=== PATIENT | female | born 2000 | race Caucasian/White ===

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

== ENCOUNTER → 2019-01-14 11:51 | Observation (INO) ==
--- NOTE | 2019-01-20 16:43 | OB/GYN Progress Note ---
Date of Encounter: 01/14/19 Time of Encounter: 12:00 - Assessment and Plan (1) Decreased movement affecting management of in second trimester Status: Acute feeling movement in triage, tracing appropriate discharged home Qualifiers: Fetus number: single or unspecified fetus Qualified Code(s): O36.8120 - Decreased movements, second trimester, not applicable or unspecified Subjective - Subjective Interval history: Here for decreased movement Antepartum ROS: no loss of fluid, no vaginal bleeding, no movement normal, no contractions Objective - Exam FHR: auscultation normal FHR comments: appropriate for gestational age
== END | disposition home or self-care (01) ==
LOC: 1NENULAB
PROVIDERS: ADMIT Advanced Practice Midwife; ATTEND Advanced Practice Midwife

== ENCOUNTER 2019-04-11 06:00 | Inpatient (IN) ==
[2019-04-11] MEDS ORDERED: Ringers Solution, Lactated 1,000 ML ONE (06:32)
[2019-04-11] MEDS ORDERED: Naloxone 0.4 MG/ML INJ IVP PRN (06:41)
[2019-04-11] MEDS ORDERED: *HR* Nalbuphine 10 MG/ML AMPUL IVP PRN (06:41)
[2019-04-11] MEDS ORDERED: Famotidine 20 MG/2 ML VIAL IVP PRN (06:41)
[2019-04-11] MEDS ORDERED: Metoclopramide 10 MG/2 ML VIAL IVP PRN (06:41)
[2019-04-11] MEDS ORDERED: Ringers Solution, Lactated 1,000 ML IVC SCH (06:45)
[2019-04-11] MEDS ORDERED: Oxytocin 20 units/ LR 1000 mL 20 UNIT/1,000 ML BAG IVC SCH (07:00)
[2019-04-11 07:25] LABS: Basophils % 0.1 %; Eosinophils # 0.2 K/mcL (0.0-0.6); Eosinophils % 1.7 %; Hematocrit 35.2 % (35.3-44.9); Hemoglobin 12.3 g/dL (11.5-15.4); Immature Granulocytes % 0.3 % (0-4); Lymphocytes # 1.6 K/mcL (0.6-4.6); Lymphocytes % 18.1 %; Mean Corpuscular HGB Conc 34.9 g/dL (31.6-35.5); Mean Corpuscular Hemoglobin 30.8 pg (28.0-33.3); Mean Corpuscular Volume 88.2 fL (83.0-100.0); Mean Platelet Volume 11.9 fL (9.4-12.4); Monocytes # 0.5 K/mcL (0.0-1.3); Monocytes % 5.3 %; Neutrophils # 6.4 K/mcL (1.6-8.9); Platelet Count 196 K/mcL (140-400); Red Blood Count 3.99 M/mcL (3.82-4.97); Red Cell Distribution Width 12.4 % (11.5-14.5); Segmented Neutrophils % 74.5 %; White Blood Count 8.6 K/mcL (4.3-11.1)
[2019-04-11 07:30] LABS: Amphetamine Screen,Urine Negative ng/mL (Cutoff=1000); Barbiturate Screen,Urine Negative ng/mL (Cutoff=200)
[2019-04-11 07:31] LABS: Benzodiazepines Screen,Urine Negative ng/mL (Cutoff=300); Cannabinoid Screen,Urine Negative ng/mL (Cutoff = 50); Cocaine Screen,Urine Negative ng/mL (Cutoff= 300); Opiate Screen,Urine Negative ng/mL (Cutoff=300); Phencyclidine Screen,Urine Negative ng/mL (Cutoff=25)
[2019-04-12] MEDS ORDERED: ceFAZolin 3,000 MG in Water for inj. (sterile) 30 ML IVP STA (08:56)
[2019-04-12] MEDS ORDERED: *HR* Morphine Sulfate/PF 10 MG/10 ML AMPUL ONE (09:00)
[2019-04-12] MEDS ORDERED: *HR* FentaNYL (PF) 100 MCG/2 ML VIAL ONE (09:00)
[2019-04-12] MEDS ORDERED: *HR* Oxytocin 10 UNIT/ML VIAL IM ONE (09:02)
[2019-04-12] MEDS ORDERED: *HR* HYDROmorphone (PF) 1 MG/ML SYRINGE IVP PRN (10:21)
[2019-04-12] MEDS ORDERED: Ondansetron 4 MG/2 ML VIAL IVP PRN ×2 (10:21→14:56)
[2019-04-12] MEDS ORDERED: Acetaminophen IV 1,000 MG/100 ML INFUS..BTL IVPB ONE (10:21)
[2019-04-12] MEDS ORDERED: Ringers Solution, Lactated 1,000 ML ONE (10:25)
[2019-04-12] MEDS ORDERED: Measles/Mumps/Rubella Vacc 0.5 ML VIAL SQ ONE (14:56)
[2019-04-12] MEDS ORDERED: Simethicone 80 MG TAB.CHEW PO PRN (14:56)
[2019-04-12] MEDS ORDERED: *HR* OxyCODONE Immed Rel 5 MG TABLET PO PRN (14:56)
[2019-04-12] MEDS ORDERED: Oxytocin 20 units/ LR 1000 mL 20 UNIT/1,000 ML BAG IVC SCH (14:56)
[2019-04-12] MEDS ORDERED: Sennosides 8.6 MG TABLET PO PRN (14:56)
[2019-04-12] MEDS ORDERED: Naloxone 0.4 MG/ML INJ IVP PRN (14:56)
[2019-04-12] MEDS ORDERED: Metoclopramide 10 MG/2 ML VIAL IVP PRN (14:56)
[2019-04-12] MEDS: *HR* OxyCODONE/APAP 5/325 TABLET PO PRN (19:34)
[2019-04-13] MEDS: *HR* OxyCODONE/APAP 5/325 TABLET PO PRN ×3 (00:08→12:17)
[2019-04-13] MEDS ORDERED: 0.9 % Sodium Chloride 250 ML ONE (00:33)
[2019-04-13] MEDS ORDERED: Lanolin 7 G OINT...G. TP PRN (03:53)
[2019-04-13] MEDS: Acetaminophen 325 MG TABLET PO PRN ×2 (07:03→21:07)
[2019-04-13 08:56] LABS: Basophils % 0.1 %; Hematocrit 32.4 % (35.3-44.9); Hemoglobin 11.2 g/dL (11.5-15.4); Immature Granulocytes % 1.1 % (0-4); Lymphocytes # 0.7 K/mcL (0.6-4.6); Lymphocytes % 3.1 %; Mean Corpuscular HGB Conc 34.6 g/dL (31.6-35.5); Mean Corpuscular Hemoglobin 30.5 pg (28.0-33.3); Mean Corpuscular Volume 88.3 fL (83.0-100.0); Mean Platelet Volume 10.9 fL (9.4-12.4); Monocytes # 1.1 K/mcL (0.0-1.3); Monocytes % 5.1 %; Neutrophils # 19.9 K/mcL (1.6-8.9); Platelet Count 187 K/mcL (140-400); Red Blood Count 3.67 M/mcL (3.82-4.97); Red Cell Distribution Width 12.9 % (11.5-14.5); Segmented Neutrophils % 90.6 %
[2019-04-13] MEDS ORDERED: Prenatal Vit/FA 1 EACH TABLET PO SCH (09:00)
[2019-04-13] MEDS: Ibuprofen 600 MG TABLET PO PRN ×3 (09:12→23:16)
[2019-04-13 20:21] VITALS: BP 114/81
[2019-04-13 21:30] LABS: Basophils % 0.1 %; Eosinophils % 0.2 %; Hematocrit 30.4 % (35.3-44.9); Hemoglobin 10.3 g/dL (11.5-15.4); Immature Granulocytes % 0.9 % (0-4); Lymphocytes # 1.1 K/mcL (0.6-4.6); Lymphocytes % 5.6 %; Mean Corpuscular HGB Conc 33.9 g/dL (31.6-35.5); Mean Corpuscular Hemoglobin 30.3 pg (28.0-33.3); Mean Corpuscular Volume 89.4 fL (83.0-100.0); Mean Platelet Volume 10.9 fL (9.4-12.4); Monocytes # 1.2 K/mcL (0.0-1.3); Monocytes % 6.3 %; Neutrophils # 16.8 K/mcL (1.6-8.9); Platelet Count 197 K/mcL (140-400); Segmented Neutrophils % 86.9 %; White Blood Count 19.2 K/mcL (4.3-11.1)
== END 2019-04-13 23:41 | disposition home or self-care (01) | DRG 788 ==
LOC: 1NENULAB 06:02 → 1NENUOBS 04-12 13:38
PROVIDERS: ADMIT Obstetrics & Gynecology; ATTEND Obstetrics & Gynecology

== ENCOUNTER 2019-04-21 21:35 | Inpatient (IN) ==
[2019-04-21 22:34] LABS: Bilirubin,Urine Negative (Negative); Blood,Urine Large (Negative); Clarity,Urine Cloudy (Clear); Color,Urine Yellow (Yellow); Glucose,Urine (UA) Normal (Normal); Ketones,Urine Negative (Negative); Leukocyte Esterase,Urine Large (Negative); Nitrite,Urine Negative (Negative); Protein,Urine 30 mg/dL (Neg-Trace); Specific Gravity,Urine 1.013 (1.010-1.025); Urobilinogen,Urine Normal (Normal)
[2019-04-21 22:37] LABS: Bacteria,Urine None Seen per hpf (None-Few); Hyaline Casts,Urine None Seen per lpf (None-Few); RBC,Urine 15-30 per hpf (0-3); Squamous Epithelial Cell,Urine Moderate per lpf (None-Few); WBC,Urine TNTC per hpf (0-3)
[2019-04-21 22:47] LABS: Basophils % 0.1 %; Eosinophils # 0.1 K/mcL (0.0-0.6); Eosinophils % 0.4 %; Hematocrit 30.5 % (35.3-44.9); Immature Granulocytes % 0.8 % (0-4); Lymphocytes # 0.7 K/mcL (0.6-4.6); Lymphocytes % 4.5 %; Mean Corpuscular HGB Conc 32.8 g/dL (31.6-35.5); Mean Corpuscular Hemoglobin 29.4 pg (28.0-33.3); Mean Corpuscular Volume 89.7 fL (83.0-100.0); Mean Platelet Volume 9.9 fL (9.4-12.4); Monocytes # 0.2 K/mcL (0.0-1.3); Monocytes % 1.4 %; Neutrophils # 14.4 K/mcL (1.6-8.9); Platelet Count 315 K/mcL (140-400); Red Cell Distribution Width 12.3 % (11.5-14.5); Segmented Neutrophils % 92.8 %; White Blood Count 15.5 K/mcL (4.3-11.1)
[2019-04-21 22:48] LABS: Yeast,Urine Moderate per hpf (None Seen)
[2019-04-21 23:08] LABS: Alanine Aminotransferase 14 Units/L (7-52); Albumin 3.3 g/dL (3.5-5.7); Alkaline Phosphatase 84 Units/L (34-104); Amylase 12 Units/L (29-103); Aspartate Amino Transferase 11 Units/L (13-39); BUN/Creatinine Ratio 16 (6-26); Bilirubin,Direct 0.1 mg/dL (0.0-0.2); Bilirubin,Indirect 0.2 mg/dL (0.0-1.2); Bilirubin,Total 0.3 mg/dL (0.3-1.0); Blood Urea Nitrogen 12 mg/dL (6-20); Carbon Dioxide 21 mEq/L (23-29); Chloride 105 mEq/L (98-107); Globulin 3.3 g/dL (2.4-3.5); Glucose 112 mg/dL (70-105); Lipase 14 Units/L (11-82); Osmolality,Calculated 283 (280-300); Potassium 3.8 mEq/L (3.5-5.1); Sodium 136 mEq/L (136-145); Total Protein 6.6 g/dL (6.4-8.9); eGFR For African Americans > 60; eGFR For Non-African Americans > 60
--- NOTE | 2019-04-21 23:15 | Emergency Department Note ---
Disposition Clinical Impression: Endometritis Sepsis Qualifiers: Sepsis type: sepsis due to unspecified organism Sepsis acute organ dysfunction status: unspecified Qualified Code(s): A41.9 - Sepsis, unspecified organism Disposition: Admitted As Inpatient Condition: Fair Forms: ED Satisfaction Letter Time of Disposition: 00:54 General Adult HPI - General Chief complaint: ED Fever Stated complaint: labordelivery told her needs to be admitted Time Seen by Provider: 04/21/19 22:46 Source: patient Limitations: no limitations - History of Present Illness Pain Scale: 0 - Related Data Home Medications Medication Instructions Recorded Confirmed Calcium Lactate 200 mg PO BID 01/14/19 04/22/19 Vit No.129/Iron/FA 2 each PO DAILY 01/14/19 04/22/19 [ One Daily Tablet] Previous Rx's Medication Instructions Recorded Ibuprofen [Motrin] 600 mg PO Q6HR PRN #60 tablet 04/13/19 Allergies Allergy/AdvReac Type Severity Reaction Status Date / Time No Known Allergies Allergy Verified 04/21/19 22:01 Past Medical History - Past Medical History Medical history: Reports: asthma Surgical history: Reports: no surgical history Psychiatric history: Reports: no psych history - Social History Smoking Status: Never smoker Smokeless Tobacco Status: No Alcohol use: Reports: none Drug use: Reports: none Physical Exam - General Limitations: no limitations General appearance: alert Course Vital Signs Temperature 103 F H 04/21/19 21:58 Pulse Rate 126 04/21/19 21:58 Respiratory Rate 20 04/21/19 21:58 Blood Pressure 126/96 04/21/19 21:58 O2 Sat by Pulse Oximetry 97 04/21/19 21:58 Temperature 103 F H 04/21/19 21:58 Pulse Rate 126 04/21/19 21:58 Respiratory Rate 20 04/21/19 21:58 Blood Pressure 126/96 04/21/19 21:58 O2 Sat by Pulse Oximetry 97 04/21/19 21:58 Oxygen Delivery Oxygen Delivery Room Air Medical Decision Making - Lab Data Result diagrams: 04/21/19 22:36 04/21/19 22:36 Lab Results 04/21/19 04/21/19 04/21/19 Range/Units 22:28 22:35 22:36 WBC 15.5 H (4.3-11.1) K/mcL RBC 3.40 L (3.82-4.97) M/mcL Hgb 10.0 L (11.5-15.4) g/dL Hct 30.5 L (35.3-44.9) % MCV 89.7 (83.0-100.0) fL MCH 29.4 (28.0-33.3) pg MCHC 32.8 (31.6-35.5) g/dL RDW 12.3 (11.5-14.5) % Plt Count 315 (140-400) K/mcL MPV 9.9 (9.4-12.4) fL Immature Gran % 0.8 (0-4) % Seg Neutrophils % 92.8 % Lymphocytes % 4.5 % Monocytes % 1.4 % Eosinophils % 0.4 % Basophils % 0.1 % Neutrophils # 14.4 H (1.6-8.9) K/mcL Lymphocytes # 0.7 (0.6-4.6) K/mcL Monocytes # 0.2 (0.0-1.3) K/mcL Eosinophils # 0.1 (0.0-0.6) K/mcL Basophils # 0.0 (0.0-0.2) K/mcL Sodium (136-145) mEq/L Potassium (3.5-5.1) mEq/L Chloride (98-107) mEq/L Carbon Dioxide (23-29) mEq/L BUN (6-20) mg/dL Creatinine (0.60-1.20) mg/dL Est GFR ( Amer) Est GFR (Non-Af Amer) BUN/Creatinine Ratio (6-26) Glucose (70-105) mg/dL Calculated Osmolality (280-300) Lactic Acid 0.7 (0.5-2.2) mmol/L Calcium (8.6-10.3) mg/dL Total Bilirubin (0.3-1.0) mg/dL Direct Bilirubin (0.0-0.2) mg/dL Indirect Bilirubin (0.0-1.2) mg/dL AST (13-39) Units/L ALT (7-52) Units/L Alkaline Phosphatase (34-104) Units/L Serum Total Protein (6.4-8.9) g/dL Albumin (3.5-5.7) g/dL Globulin (2.4-3.5) g/dL Albumin/Globulin Ratio (1.1-2.2) Amylase (29-103) Units/L Lipase (11-82) Units/L Urine Color Yellow (Yellow) Urine Clarity Cloudy A (Clear) Urine pH 7.0 (5.0-8.0) pH Units Ur Specific Palmer 1.013 (1.010-1.025) Urine Protein 30 H (Neg-Trace) mg/dL Urine Glucose (UA) Normal (Normal) mg/dL Urine Ketones Negative (Negative) mg/dL Urine Blood Large H (Negative) Urine Nitrite Negative (Negative) Urine Bilirubin Negative (Negative) Urine Urobilinogen Normal (Normal) mg/dL Ur Leukocyte Esterase Large H (Negative) Urine Microscopic RBC 15-30 H (0-3) per hpf Urine Microscopic WBC TNTC H (0-3) per hpf Ur Squamous Epith Cells Moderate H (None-Few) per lpf Urine Bacteria None Seen (None-Few) per hpf Hyaline Casts None Seen (None-Few) per lpf Urine Yeast Moderate H (None Seen) per hpf Ur Culture Indicated? YES A (NO) 04/21/19 Range/Units 22:36 WBC (4.3-11.1) K/mcL RBC (3.82-4.97) M/mcL Hgb (11.5-15.4) g/dL Hct (35.3-44.9) % MCV (83.0-100.0) fL MCH (28.0-33.3) pg MCHC (31.6-35.5) g/dL RDW (11.5-14.5) % Plt Count (140-400) K/mcL MPV (9.4-12.4) fL Immature Gran % (0-4) % Seg Neutrophils % % Lymphocytes % % Monocytes % % Eosinophils % % Basophils % % Neutrophils # (1.6-8.9) K/mcL Lymphocytes # (0.6-4.6) K/mcL Monocytes # (0.0-1.3) K/mcL Eosinophils # (0.0-0.6) K/mcL Basophils # (0.0-0.2) K/mcL Sodium 136 (136-145) mEq/L Potassium 3.8 (3.5-5.1) mEq/L Chloride 105 (98-107) mEq/L Carbon Dioxide 21 L (23-29) mEq/L BUN 12 (6-20) mg/dL Creatinine 0.77 (0.60-1.20) mg/dL Est GFR ( Amer) > 60 Est GFR (Non-Af Amer) > 60 BUN/Creatinine Ratio 16 (6-26) Glucose 112 H (70-105) mg/dL Calculated Osmolality 283 (280-300) Lactic Acid (0.5-2.2) mmol/L Calcium 9.0 (8.6-10.3) mg/dL Total Bilirubin 0.3 (0.3-1.0) mg/dL Direct Bilirubin 0.1 (0.0-0.2) mg/dL Indirect Bilirubin 0.2 (0.0-1.2) mg/dL AST 11 L (13-39) Units/L ALT 14 (7-52) Units/L Alkaline Phosphatase 84 (34-104) Units/L Serum Total Protein 6.6 (6.4-8.9) g/dL Albumin 3.3 L (3.5-5.7) g/dL Globulin 3.3 (2.4-3.5) g/dL Albumin/Globulin Ratio 1.0 L (1.1-2.2) Amylase 12 L (29-103) Units/L Lipase 14 (11-82) Units/L Urine Color (Yellow) Urine Clarity (Clear) Urine pH (5.0-8.0) pH Units Ur Specific Palmer (1.010-1.025) Urine Protein (Neg-Trace) mg/dL Urine Glucose (UA) (Normal) mg/dL Urine Ketones (Negative) mg/dL Urine Blood (Negative) Urine Nitrite (Negative) Urine Bilirubin (Negative) Urine Urobilinogen (Normal) mg/dL Ur Leukocyte Esterase (Negative) Urine Microscopic RBC (0-3) per hpf Urine Microscopic WBC (0-3) per hpf Ur Squamous Epith Cells (None-Few) per lpf Urine Bacteria (None-Few) per hpf Hyaline Casts (None-Few) per lpf Urine Yeast (None Seen) per hpf Ur Culture Indicated? (NO) Attestation Statement - Attestation Attestation: I reviewed the residents documentation and agree with the residents assessment and plan of care. I have personally had face to face time with the patient. (Brief History, Brief Exam, and MDM) I personally supervised and was present for the lora/critical portions of the following procedures completed by the resident: (add procedures performed here). [id number] time provided in conjunction with the resident physician Dr. Bacon Patient arrives complaining of fever. She is tachycardic and febrile at triage. She underwent a section 9 days ago and she was told by her OB that the incision was healing well. She does not appear in any acute distress on exam
[2019-04-21] MEDS ORDERED: Gentamicin 130 MG in 0.9 % Sodium Chloride 100 ML IVPB STA (23:43)
[2019-04-21] MEDS ORDERED: Clindamycin 900 MG/50 ML 900 MG/50 ML IV.SOLN IVPB ONE (23:43)
[2019-04-21] MEDS ORDERED: Ampicillin 1,000 MG in 0.9 % Sodium Chloride Mini Bag 100 ML IVPB ONE (23:43)
[2019-04-21] MEDS ORDERED: 0.9 % Sodium Chloride 1,000 ML ONE (23:45)
[2019-04-21] MEDS ORDERED: 0.9 % Sodium Chloride 1,000 ML IVC ONE (23:46)
--- NOTE | 2019-04-21 23:55 | Emergency Department Note ---
Disposition Clinical Impression: Endometritis Sepsis Qualifiers: Sepsis type: sepsis due to unspecified organism Sepsis acute organ dysfunction status: unspecified Qualified Code(s): A41.9 - Sepsis, unspecified organism Disposition: Admitted As Inpatient Condition: Fair Time of Disposition: 00:00 General Adult HPI - General Chief complaint: ED Fever Stated complaint: laborian told her needs to be admitted Time Seen by Provider: 04/21/19 22:46 Source: patient Mode of arrival: ambulatory Limitations: no limitations Nursing Notes Reviewed: Yes Vital Signs Reviewed: Yes - History of Present Illness HPI Narrative: Patient is a 18-year-old female that is a this presenting to the emergency department due to being febrile. Patient states that she had a approximately 9 days ago. Patient states that since then she has been having increased lower abdominal discomfort as well as fever. Patient states that her heart rate has also been elevated. Patient states that she saw her AUDIOMETRIST today and her incision looked good at that time. Patient states that she has not had any significant vaginal discharge or bleeding. Patient denies any other symptoms. Patient states that she otherwise feels well. Patient has had one episode of nausea and vomiting. Patient does not have any other complaints at this time. Patient states that things are going well with the baby at home. Pain Scale: 0 - Related Data Home Medications Medication Instructions Recorded Confirmed Calcium Lactate 200 mg PO BID 01/14/19 04/11/19 Vit No.129/Iron/FA 2 each PO DAILY 01/14/19 04/11/19 [ One Daily Tablet] Previous Rx's Medication Instructions Recorded Albuterol Sulfate [Albuterol 1 - 2 puff IH Q6HR PRN #1 05/18/17 Inhaler] [email or web address] predniSONE [PredniSONE] 0 mg PO DAILY #15 tablet 05/18/17 Acetaminophen [Tylenol] 325 mg PO Q6HR PRN tablet 04/13/19 Docusate [Colace] 100 mg PO BID capsule 04/13/19 Ibuprofen [Motrin] 600 mg PO Q6HR PRN #60 tablet 04/13/19 Lanolin [Lansinoh] 1 appl TP Q4HR PRN oint...g. 04/13/19 OxyCODONE/APAP 5/325 [Percocet 1 each PO Q6H PRN 7 Days #28 tablet 04/13/19 5/325 MG] Simethicone [Gas-X] 80 mg PO TID PRN tab.chew 04/13/19 Allergies Allergy/AdvReac Type Severity Reaction Status Date / Time No Known Allergies Allergy Verified 04/21/19 22:01 All systems ED: reviewed and negative except as stated. Constitutional: Reports: fever Cardiovascular: Denies: chest pain Respiratory: Denies: dyspnea Gastrointestinal: Reports: abdominal pain, vomiting. Denies: nausea Genitourinary: Denies: urgency, dysuria, frequency, hematuria Neurological: Denies: weakness, numbness, paresthesias Past Medical History - Past Medical History Medical history: Reports: asthma Surgical history: Reports: no surgical history Psychiatric history: Reports: no psych history - Social History Smoking Status: Never smoker Smokeless Tobacco Status: No Alcohol use: Reports: none Drug use: Reports: none Physical Exam - General Limitations: no limitations General appearance: alert, in no apparent distress - Head Head exam: atraumatic, normocephalic - Eye Eye exam: Present: normal appearance, EOMI - Neck Neck exam: Present: normal inspection, full ROM, trachea midline - Respiratory Respiratory exam: Present: normal lung sounds bilaterally. Absent: respiratory distress, wheezes - Cardiovascular Cardiovascular exam: Present: regular rate, normal rhythm, normal heart sounds, +S1, +S2 - Abdominal Exam Abdominal exam: Present: soft, tenderness, normal bowel sounds - Neurological Exam Neurological exam: Present: alert, oriented X3 - Psychiatric Psychiatric exam: Present: normal affect, normal mood - Skin Skin exam: Present: warm, dry, intact Course Vital Signs Temperature 103 F H 04/21/19 21:58 Pulse Rate 126 04/21/19 21:58 Respiratory Rate 20 04/21/19 21:58 Blood Pressure 126/96 04/21/19 21:58 O2 Sat by Pulse Oximetry 97 04/21/19 21:58 Temperature 103 F H 04/21/19 21:58 Pulse Rate 126 04/21/19 21:58 Respiratory Rate 20 04/21/19 21:58 Blood Pressure 126/96 04/21/19 21:58 O2 Sat by Pulse Oximetry 97 04/21/19 21:58 Oxygen Delivery Oxygen Delivery Room Air Medical Decision Making - MDM Narrative Medical decision making narrative: Due the patient presents emergency Department with reports of fever with recent surgery patient up for testing was obtained which showed a elevated white blood cell count of 15.5. Patient was tachycardic and febrile. Patient did meet sepsis criteria. Patient was started on IV fluids. Patient was also started on antibiotics of amp, gentamicin and clindamycin. There is a high specific for endometriosis. [facility] was contacted and I discussed the case with Dr. Reyna. He is in agreement with the patient being admitted to their service. Patient was started on broad-spectrum antibiotics and will be admitted to the [facility] service for further evaluation and management of her symptoms. - Medical Records Medical records reviewed: Yes I reviewed the patient's medical records. - Lab Data Lab results reviewed: Yes I reviewed the patient's lab results. Result diagrams: 04/21/19 22:36 04/21/19 22:36 Lab Results 04/21/19 04/21/19 04/21/19 Range/Units 22:28 22:35 22:36 WBC 15.5 H (4.3-11.1) K/mcL RBC 3.40 L (3.82-4.97) M/mcL Hgb 10.0 L (11.5-15.4) g/dL Hct 30.5 L (35.3-44.9) % MCV 89.7 (83.0-100.0) fL MCH 29.4 (28.0-33.3) pg MCHC 32.8 (31.6-35.5) g/dL RDW 12.3 (11.5-14.5) % Plt Count 315 (140-400) K/mcL MPV 9.9 (9.4-12.4) fL Immature Gran % 0.8 (0-4) % Seg Neutrophils % 92.8 % Lymphocytes % 4.5 % Monocytes % 1.4 % Eosinophils % 0.4 % Basophils % 0.1 % Neutrophils # 14.4 H (1.6-8.9) K/mcL Lymphocytes # 0.7 (0.6-4.6) K/mcL Monocytes # 0.2 (0.0-1.3) K/mcL Eosinophils # 0.1 (0.0-0.6) K/mcL Basophils # 0.0 (0.0-0.2) K/mcL Sodium (136-145) mEq/L Potassium (3.5-5.1) mEq/L Chloride (98-107) mEq/L Carbon Dioxide (23-29) mEq/L BUN (6-20) mg/dL Creatinine (0.60-1.20) mg/dL Est GFR ( Amer) Est GFR (Non-Af Amer) BUN/Creatinine Ratio (6-26) Glucose (70-105) mg/dL Calculated Osmolality (280-300) Lactic Acid 0.7 (0.5-2.2) mmol/L Calcium (8.6-10.3) mg/dL Total Bilirubin (0.3-1.0) mg/dL Direct Bilirubin (0.0-0.2) mg/dL Indirect Bilirubin (0.0-1.2) mg/dL AST (13-39) Units/L ALT (7-52) Units/L Alkaline Phosphatase (34-104) Units/L Serum Total Protein (6.4-8.9) g/dL Albumin (3.5-5.7) g/dL Globulin (2.4-3.5) g/dL Albumin/Globulin Ratio (1.1-2.2) Amylase (29-103) Units/L Lipase (11-82) Units/L Urine Color Yellow (Yellow) Urine Clarity Cloudy A (Clear) Urine pH 7.0 (5.0-8.0) pH Units Ur Specific [place] 1.013 (1.010-1.025) Urine Protein 30 H (Neg-Trace) mg/dL Urine Glucose (UA) Normal (Normal) mg/dL Urine Ketones Negative (Negative) mg/dL Urine Blood Large H (Negative) Urine Nitrite Negative (Negative) Urine Bilirubin Negative (Negative) Urine Urobilinogen Normal (Normal) mg/dL Ur Leukocyte Esterase Large H (Negative) Urine Microscopic RBC 15-30 H (0-3) per hpf Urine Microscopic WBC TNTC H (0-3) per hpf Ur Squamous Epith Cells Moderate H (None-Few) per lpf Urine Bacteria None Seen (None-Few) per hpf Hyaline Casts None Seen (None-Few) per lpf Urine Yeast Moderate H (None Seen) per hpf Ur Culture Indicated? YES A (NO) 04/21/19 Range/Units 22:36 WBC (4.3-11.1) K/mcL RBC (3.82-4.97) M/mcL Hgb (11.5-15.4) g/dL Hct (35.3-44.9) % MCV (83.0-100.0) fL MCH (28.0-33.3) pg MCHC (31.6-35.5) g/dL RDW (11.5-14.5) % Plt Count (140-400) K/mcL MPV (9.4-12.4) fL Immature Gran % (0-4) % Seg Neutrophils % % Lymphocytes % % Monocytes % % Eosinophils % % Basophils % % Neutrophils # (1.6-8.9) K/mcL Lymphocytes # (0.6-4.6) K/mcL Monocytes # (0.0-1.3) K/mcL Eosinophils # (0.0-0.6) K/mcL Basophils # (0.0-0.2) K/mcL Sodium 136 (136-145) mEq/L Potassium 3.8 (3.5-5.1) mEq/L Chloride 105 (98-107) mEq/L Carbon Dioxide 21 L (23-29) mEq/L BUN 12 (6-20) mg/dL Creatinine 0.77 (0.60-1.20) mg/dL Est GFR ( Amer) > 60 Est GFR (Non-Af Amer) > 60 BUN/Creatinine Ratio 16 (6-26) Glucose 112 H (70-105) mg/dL Calculated Osmolality 283 (280-300) Lactic Acid (0.5-2.2) mmol/L Calcium 9.0 (8.6-10.3) mg/dL Total Bilirubin 0.3 (0.3-1.0) mg/dL Direct Bilirubin 0.1 (0.0-0.2) mg/dL Indirect Bilirubin 0.2 (0.0-1.2) mg/dL AST 11 L (13-39) Units/L ALT 14 (7-52) Units/L Alkaline Phosphatase 84 (34-104) Units/L Serum Total Protein 6.6 (6.4-8.9) g/dL Albumin 3.3 L (3.5-5.7) g/dL Globulin 3.3 (2.4-3.5) g/dL Albumin/Globulin Ratio 1.0 L (1.1-2.2) Amylase 12 L (29-103) Units/L Lipase 14 (11-82) Units/L Urine Color (Yellow) Urine Clarity (Clear) Urine pH (5.0-8.0) pH Units Ur Specific [place] (1.010-1.025) Urine Protein (Neg-Trace) mg/dL Urine Glucose (UA) (Normal) mg/dL Urine Ketones (Negative) mg/dL Urine Blood (Negative) Urine Nitrite (Negative) Urine Bilirubin (Negative) Urine Urobilinogen (Normal) mg/dL Ur Leukocyte Esterase (Negative) Urine Microscopic RBC (0-3) per hpf Urine Microscopic WBC (0-3) per hpf Ur Squamous Epith Cells (None-Few) per lpf Urine Bacteria (None-Few) per hpf Hyaline Casts (None-Few) per lpf Urine Yeast (None Seen) per hpf Ur Culture Indicated? (NO) - Radiology Data Radiology results reviewed: Yes I reviewed the patient's radiology results.
[2019-04-22] MEDS ORDERED: Ibuprofen 600 MG TABLET PO PRN (04:25)
[2019-04-22] MEDS ORDERED: Acetaminophen 325 MG TABLET PO PRN (04:26)
--- NOTE | 2019-04-22 04:31 | OB/GYN History & Physical ---
Date of Encounter: 04/22/19 Time of Encounter: 04:29 Assessment and Plan (1) Status post section Current visit: Yes Status: Acute Patient 10 days status post section before doing well now showing some signs of early sepsis with tachycardia, fever, dyspnea and relative hypotension. We will admit for IV antibiotics and continued close observation. She does have blood cultures which are pending. (2) Tachycardia determined by examination of pulse Current visit: Yes Status: Acute Patient with tachycardia concerning for possible early sepsis though she has normal lactic acid. Her hemoglobin is stable and she is having no active bleeding. We will give gentle IV hydration and treatment with IV antibiotics. (3) Endometritis Current visit: Yes Status: Acute Patient with fever 103 and tachycardia. No significant source of infection the most likely source would be endometritis with mild tenderness of her uterus. She has no purulent discharge. We will treat with IV triple antibiotics. She does have blood cultures pending. History of Present Illness Chief complaint: fever and abdominal pain 10 days s/p HPI: Ms. Stephenson is a 18 year old female 10 days s/p primary c-sec for failure to progress presents admission from the emergency room where she went when she was having worsening abdominal pain fevers chills weakness. She states she did feel her heart racing and felt short of breath. She has not had excessive bleeding she denies abnormal discharge. She was seen by Dr. Mosley earlier in the afternoon for possible infection that time urinalysis was ordered the results of which are but not back. At that time she is now having a fever cc started this evening when she woke up after sleeping at approximately 20:30. She denies cough chest pain. She is breast and bottlefeeding has no breast t enderness. Her incisions intact with no significant drainage redness or warmth. In the emergency room she did have a fever of 103 and tachycardic at 125. Respiratory was 20 has this there was some concern of early sepsis. Her white blood cell count was stable at 15,000 from discharge and she had a normal lactic acid decision was made to admit for triple antibiotics and close observation. Urinalysis was equivocal chest x-ray was normal. Past Med Surg Social Fam HX - Past Medical History Source: patient Medical history: asthma Psychiatric history: no psych history - Past Surgical History Surgical History: no surgical history - Social History Smoking Status: Never smoker Smokeless Tobacco Status: No Alcohol use: none Drug use: none - Family History Mother Adopted: No Living Status: Still Living Hx Family Cardiac Disorders: No Hx Family Respiratory Disorders: No Hx Family Cancer: No Hx Family GI Disorders: No Hx Family Endocrine Disorder: No Hx Family Neuromuscular Disorders: No Hx Family Neurologic Disorders: No Hx Family HEENT Disorders: No Hx Family Autoimmune Disorders: No Obstetrical History - Pregnancies : 4 Para: 1 Term: 1 : 1 (26 week stillborn) Ab's: 2 Livin Medications and Allergies Calcium Lactate 200 mg PO BID 01/14/19 [History] Vit No.129/Iron/FA [ One Daily Tablet] 2 each PO DAILY 01/14/19 [History] Ibuprofen [Motrin] 600 mg PO Q6HR PRN #60 tablet 04/13/19 [Rx] Allergy/AdvReac Type Severity Reaction Status Date / Time No Known Allergies Allergy Verified 04/21/19 22:01 Review of System OB - Respiratory Respiratory: as per HPI, dyspnea Exam - Vital Signs Vital signs: Initial Vital Signs Temp Pulse Resp BP Pulse Ox 103 F H 126 20 126/96 97 04/21/19 21:58 04/21/19 21:58 04/21/19 21:58 04/21/19 21:58 04/21/19 21:58 - Constitutional Constitutional: well developed, no acute distress - HEENT HEENT: EOMI, PERRL, Mucus Membranes Moist - Neck Neck exam: full ROM - Lungs Respiratory exam: CTAB - Cardiovascular Cardiovascular exam: RRR - Abdomen Abdomen: Present: bowel sounds normal Abdomen detail: right lower quadrant: tenderness (Mild tenderness), left lower quadrant: tenderness - Extremities Extremities exam: full ROM ( in suprapubic region) Deep Tendon Reflex Grade: 2+ Normal - Uterus Uterus exam: Present: normal size (Firm with mild tenderness) - Comments Comments: Incision is clean dry wound approximate minimal tenderness along the incision no evidence of cellulitis or fluid collection. Results Result Diagrams: 04/21/19 22:36 04/21/19 22:36 Abnormal lab results WBC 15.5 K/mcL (4.3-11.1) H 04/21/19 22:36 RBC 3.40 M/mcL (3.82-4.97) L 04/21/19 22:36 Hgb 10.0 g/dL (11.5-15.4) L 04/21/19 22:36 Hct 30.5 % (35.3-44.9) L 04/21/19 22:36 Neutrophils # 14.4 K/mcL (1.6-8.9) H 04/21/19 22:36 Carbon Dioxide 21 mEq/L (23-29) L 04/21/19 22:36 Glucose 112 mg/dL (70-105) H 04/21/19 22:36 AST 11 Units/L (13-39) L 04/21/19 22:36 Albumin 3.3 g/dL (3.5-5.7) L 04/21/19 22:36 Albumin/Globulin Ratio 1.0 (1.1-2.2) L 04/21/19 22:36 Amylase 12 Units/L (29-103) L 04/21/19 22:36 Urine Clarity Cloudy (Clear) A 04/21/19 22:28 Urine Protein 30 mg/dL (Neg-Trace) H 04/21/19 22:28 Urine Blood Large (Negative) H 04/21/19 22:28 Ur Leukocyte Esterase Large (Negative) H 04/21/19 22:28 Urine Microscopic RBC 15-30 per hpf (0-3) H 04/21/19 22:28 Urine Microscopic WBC TNTC per hpf (0-3) H 04/21/19 22:28 Ur Squamous Epith Cells Moderate per lpf (None-Few) H 04/21/19 22:28 Urine Yeast Moderate per hpf (None Seen) H 04/21/19 22:28 Ur Culture Indicated? YES (NO) A 04/21/19 22:28 All other labs normal.
[2019-04-22] MEDS: Ringers Solution, Lactated 1,000 ML IVC SCH ×2 (06:00→17:25)
[2019-04-22] MEDS: Ampicillin 1,000 MG in 0.9 % Sodium Chloride Mini Bag 100 ML IVPB SCH ×4 (08:05→20:27)
[2019-04-22] MEDS: Clindamycin 900 MG/50 ML 900 MG/50 ML IV.SOLN IVPB SCH ×2 (09:14→15:02)
[2019-04-22 21:40] VITALS: BP 117/68
--- NOTE | 2019-04-22 22:17 | Discharge Summary ---
Date of Encounter: 04/22/19 Time of Encounter: 22:16 - Discharge Diagnosis (1) Endometritis Priority: Primary Status: Acute Comments: Discharge home on oral antibiotics No fever x 24 hours Follow up in the office in 1 week Pain well controlled, lochia is light (2) Status post section Priority: Secondary Status: Acute - Discharge Medications Prescriptions: New metroNIDAZOLE [Flagyl] 500 mg PO BID 14 Days #28 tablet cephALEXin [Keflex] 1,000 mg PO BID 14 Days #56 capsule Acetaminophen [Tylenol] 650 mg PO Q6H PRN tablet PRN Reason: Pain Continued Vit No.129/Iron/FA [ One Daily Tablet] 2 each PO DAILY Calcium Lactate 200 mg PO BID Ibuprofen [Motrin] 600 mg PO Q6HR PRN #60 tablet PRN Reason: Cramping Home Medications: Calcium Lactate 200 mg PO BID 01/14/19 [History] Vit No.129/Iron/FA [ One Daily Tablet] 2 each PO DAILY 01/14/19 [History] Ibuprofen [Motrin] 600 mg PO Q6HR PRN #60 tablet 04/13/19 [Rx] Acetaminophen [Tylenol] 650 mg PO Q6H PRN tablet 04/22/19 [Rx] cephALEXin [Keflex] 1,000 mg PO BID 14 Days #56 capsule 04/22/19 [Rx] metroNIDAZOLE [Flagyl] 500 mg PO BID 14 Days #28 tablet 04/22/19 [Rx] Allergies/Adverse Reactions: Allergy/AdvReac Type Severity Reaction Status Date / Time No Known Allergies Allergy Verified 04/21/19 22:01 Data Procedures and tests throughout hospitalization: Laboratory Tests 04/21/19 04/21/19 04/21/19 22:28 22:35 22:36 WBC 15.5 H RBC 3.40 L Hgb 10.0 L Hct 30.5 L MCV 89.7 MCH 29.4 MCHC 32.8 RDW 12.3 Plt Count 315 MPV 9.9 Immature Gran % 0.8 Seg Neutrophils % 92.8 Lymphocytes % 4.5 Monocytes % 1.4 Eosinophils % 0.4 Basophils % 0.1 Neutrophils # 14.4 H Lymphocytes # 0.7 Monocytes # 0.2 Eosinophils # 0.1 Basophils # 0.0 Sodium Potassium Chloride Carbon Dioxide BUN Creatinine Est GFR ( Amer) Est GFR (Non-Af Amer) BUN/Creatinine Ratio Glucose Calculated Osmolality Lactic Acid 0.7 Calcium Total Bilirubin Direct Bilirubin Indirect Bilirubin AST ALT Alkaline Phosphatase Serum Total Protein Albumin Globulin Albumin/Globulin Ratio Amylase Lipase Urine Color Yellow Urine Clarity Cloudy A Urine pH 7.0 Ur Specific [place] 1.013 Urine Protein 30 H Urine Glucose (UA) Normal Urine Ketones Negative Urine Blood Large H Urine Nitrite Negative Urine Bilirubin Negative Urine Urobilinogen Normal Ur Leukocyte Esterase Large H Urine Microscopic RBC 15-30 H Urine Microscopic WBC TNTC H Ur Squamous Epith Cells Moderate H Urine Bacteria None Seen Hyaline Casts None Seen Urine Yeast Moderate H Ur Culture Indicated? YES A 04/21/19 22:36 WBC RBC Hgb Hct MCV MCH MCHC RDW Plt Count MPV Immature Gran % Seg Neutrophils % Lymphocytes % Monocytes % Eosinophils % Basophils % Neutrophils # Lymphocytes # Monocytes # Eosinophils # Basophils # Sodium 136 Potassium 3.8 Chloride 105 Carbon Dioxide 21 L BUN 12 Creatinine 0.77 Est GFR ( Amer) > 60 Est GFR (Non-Af Amer) > 60 BUN/Creatinine Ratio 16 Glucose 112 H Calculated Osmolality 283 Lactic Acid Calcium 9.0 Total Bilirubin 0.3 Direct Bilirubin 0.1 Indirect Bilirubin 0.2 AST 11 L ALT 14 Alkaline Phosphatase 84 Serum Total Protein 6.6 Albumin 3.3 L Globulin 3.3 Albumin/Globulin Ratio 1.0 L Amylase 12 L Lipase 14 Urine Color Urine Clarity Urine pH Ur Specific [place] Urine Protein Urine Glucose (UA) Urine Ketones Urine Blood Urine Nitrite Urine Bilirubin Urine Urobilinogen Ur Leukocyte Esterase Urine Microscopic RBC Urine Microscopic WBC Ur Squamous Epith Cells Urine Bacteria Hyaline Casts Urine Yeast Ur Culture Indicated? Labs on day of discharge: Labs from last 24 hours 04/21/19 04/21/19 04/21/19 22:36 22:36 22:35 WBC 15.5 H RBC 3.40 L Hgb 10.0 L Hct 30.5 L MCV 89.7 MCH 29.4 MCHC 32.8 RDW 12.3 Plt Count 315 MPV 9.9 Immature Gran % 0.8 Seg Neutrophils % 92.8 Lymphocytes % 4.5 Monocytes % 1.4 Eosinophils % 0.4 Basophils % 0.1 Neutrophils # 14.4 H Lymphocytes # 0.7 Monocytes # 0.2 Eosinophils # 0.1 Basophils # 0.0 Sodium 136 Potassium 3.8 Chloride 105 Carbon Dioxide 21 L BUN 12 Creatinine 0.77 Est GFR ( Amer) > 60 Est GFR (Non-Af Amer) > 60 BUN/Creatinine Ratio 16 Glucose 112 H Calculated Osmolality 283 Lactic Acid 0.7 Calcium 9.0 Total Bilirubin 0.3 Direct Bilirubin 0.1 Indirect Bilirubin 0.2 AST 11 L ALT 14 Alkaline Phosphatase 84 Serum Total Protein 6.6 Albumin 3.3 L Globulin 3.3 Albumin/Globulin Ratio 1.0 L Amylase 12 L Lipase 14 Urine Color Urine Clarity Urine pH Ur Specific [place] Urine Protein Urine Glucose (UA) Urine Ketones Urine Blood Urine Nitrite Urine Bilirubin Urine Urobilinogen Ur Leukocyte Esterase Urine Microscopic RBC Urine Microscopic WBC Ur Squamous Epith Cells Urine Bacteria Hyaline Casts Urine Yeast Ur Culture Indicated? 04/21/19 22:28 WBC RBC Hgb Hct MCV MCH MCHC RDW Plt Count MPV Immature Gran % Seg Neutrophils % Lymphocytes % Monocytes % Eosinophils % Basophils % Neutrophils # Lymphocytes # Monocytes # Eosinophils # Basophils # Sodium Potassium Chloride Carbon Dioxide BUN Creatinine Est GFR ( Amer) Est GFR (Non-Af Amer) BUN/Creatinine Ratio Glucose Calculated Osmolality Lactic Acid Calcium Total Bilirubin Direct Bilirubin Indirect Bilirubin AST ALT Alkaline Phosphatase Serum Total Protein Albumin Globulin Albumin/Globulin Ratio Amylase Lipase Urine Color Yellow Urine Clarity Cloudy A Urine pH 7.0 Ur Specific [place] 1.013 Urine Protein 30 H Urine Glucose (UA) Normal Urine Ketones Negative Urine Blood Large H Urine Nitrite Negative Urine Bilirubin Negative Urine Urobilinogen Normal Ur Leukocyte Esterase Large H Urine Microscopic RBC 15-30 H Urine Microscopic WBC TNTC H Ur Squamous Epith Cells Moderate H Urine Bacteria None Seen Hyaline Casts None Seen Urine Yeast Moderate H Ur Culture Indicated? YES A Preliminary micro results at discharge 04/21/19 22:28 Urine Culture - Preliminary Urine,Clean Catch Culture is incubating. 04/21/19 22:36 Blood Culture - Preliminary Peripheral Venipuncture Culture is incubating and being continuously monitored for growth. Final report to follow. 04/21/19 22:35 Blood Culture - Preliminary Peripheral Venipuncture Culture is incubating and being continuously monitored for growth. Final report to follow. - Impressions ITS Impressions Chest X-Ray 04/21/19 22:14 IMPRESSION: No acute disease. D/ / Rachael Walker Cha, MD / Rachael Walker Cha, MD Interpreting Provider: Rachael Walker Cha, MD Date of admission: 04/22/19 14:36 Primary care physician: PCP NONE Discharging clinician: Mercy Katz Anticipated date of discharge: 04/22/19 - Patient Status Disposition: Home, Self-Care Condition: Good Functional capacity at discharge: independent ambulation Overall status at discharge: patient is progressing back to baseline - Discharge Instructions Follow Up With: NONE,PCP [Primary Care Provider] - Glenn Barksdale MD [Partnered Physician] - - Diet and Activity Activity: increase activity as tolerated Diet: regular diet Hospital Course [employer] Reason for admission: other (Fever and endometritis) Discharge diagnosis: other (Endometritis) Time Attestation: Total time spent providing and/or coordinating discharge services: Time Spent: Less than 30 minutes Exam - Constitutional Vitals: Temp Pulse Resp BP Pulse Ox 98.8 F 98 18 117/68 98 04/22/19 21:20 04/22/19 21:20 04/22/19 21:20 04/22/19 21:20 04/22/19 21:20 General appearance IM: cooperative, A&O X 3, pleasant - Respiratory Respiratory exam: Present: CTAB - Cardiovascular Cardiovascular exam IM: Present: RRR, +S1, +S2 - GI/Abdominal GI/Abdominal exam IM: normal bowel sounds, soft Incision: normal, dry, intact - Rectal Rectal exam: deferred - Uterine Tone: Firm Uterus Position: 4 Fingers Below Umbilicus, Midline - Extremities Exam Extremities exam IM: Present: normal capillary refill, normal inspection, radial pulses palpable and symmetrical - Neurological Exam Neurological exam: alert, oriented X3
[2019-04-24 10:33] LABS: Acinetobacter baumannii by PCR Not Detected (Not Detect); Candida albicans by PCR Not Detected (Not Detect); Candida glabrata by PCR Not Detected (Not Detect); Candida parapsilosis by PCR Not Detected (Not Detect); Candida tropicalis by PCR Not Detected (Not Detect); Enterobacter cloacae Cmplx PCR Not Detected (Not Detect); Enterobacteriaceae by PCR Not Detected (Not Detect); Enterococcus by PCR Not Detected (Not Detect); Escherichia coli by PCR Not Detected (Not Detect); Klebsiella oxytoca by PCR Not Detected (Not Detect); Klebsiella pneumoniae by PCR Not Detected (Not Detect); Proteus by PCR Not Detected (Not Detect); Pseudomonas aeruginosa by PCR Not Detected (Not Detect); Serratia marcescens by PCR Not Detected (Not Detect); Staphylococcus aureus by PCR Not Detected (Not Detect); Staphylococcus by PCR Not Detected (Not Detect); Streptococcus agalactiae(B)PCR Not Detected (Not Detect); Streptococcus by PCR Not Detected (Not Detect); Streptococcus pneumoniae PCR Not Detected (Not Detect); Streptococcus pyogenes (A) PCR Not Detected (Not Detect); blaKPC Carbapenem-Resist Gene Not Detected (Not Detect); mecA Methicillin-Resist Gene Not Detected (Not Detect); vanA/B Vancomycin-Resist Genes Not Detected (Not Detect)
[2019-04-24 10:34] LABS: Candida krusei by PCR Not Detected (Not Detect)
== END 2019-04-22 22:45 | disposition home or self-care (01) | DRG 776 ==
LOC: EMEROOARM 21:35 → 1NENUPED 21:35
PROVIDERS: ADMIT Obstetrics & Gynecology; ATTEND Obstetrics & Gynecology

== ENCOUNTER 2021-02-22 05:56 | Inpatient (IN) ==
[2021-02-22] MEDS ORDERED: *HR* Nalbuphine 10 MG/ML AMPUL IV PRN (06:08)
[2021-02-22] MEDS ORDERED: Metoclopramide 10 MG/2 ML VIAL IVP PRN (06:08)
[2021-02-22] MEDS ORDERED: Azithromycin 500 MG in 0.9 % Sodium Chloride 250 ML IVPB PRN (06:08)
[2021-02-22] MEDS ORDERED: Famotidine 20 MG/2 ML VIAL IVP PRN (06:08)
[2021-02-22] MEDS ORDERED: Naloxone 0.4 MG/ML INJ IVP PRN (06:08)
[2021-02-22] MEDS ORDERED: Oxytocin 20 units/ LR 1000 mL 20 UNIT/1,000 ML BAG IVC SCH (06:15)
[2021-02-22] MEDS ORDERED: Ringers Solution, Lactated 1,000 ML IVC SCH (06:15)
[2021-02-22 06:41] LABS: Basophils % 0.2 %; Eosinophils # 0.4 K/mcL (0.0-0.6); Eosinophils % 5.1 %; Hematocrit 34.1 % (35.3-44.9); Immature Granulocytes % 0.6 % (0-4); Lymphocytes # 1.9 K/mcL (0.6-4.6); Mean Corpuscular HGB Conc 35.2 g/dL (31.6-35.5); Mean Corpuscular Hemoglobin 30.7 pg (28.0-33.3); Mean Corpuscular Volume 87.2 fL (83.0-100.0); Mean Platelet Volume 11.5 fL (9.4-12.4); Monocytes # 0.4 K/mcL (0.0-1.3); Monocytes % 4.1 %; Neutrophils # 5.9 K/mcL (1.6-8.9); Platelet Count 167 K/mcL (140-400); Red Blood Count 3.91 M/mcL (3.82-4.97); Red Cell Distribution Width 12.1 % (11.5-14.5); White Blood Count 8.6 K/mcL (4.3-11.1)
[2021-02-22 08:44] LABS: Amphetamine Screen,Urine Negative ng/mL (Cutoff=1000); Barbiturate Screen,Urine Negative ng/mL (Cutoff=200); Benzodiazepines Screen,Urine Negative ng/mL (Cutoff=200); Cannabinoid Screen,Urine Negative ng/mL (Cutoff = 50); Cocaine Screen,Urine Negative ng/mL (Cutoff= 300); Opiate Screen,Urine Negative ng/mL (Cutoff=300); Phencyclidine Screen,Urine Negative ng/mL (Cutoff=25)
[2021-02-22] MEDS ORDERED: Lidocaine 1% 20 ML MDV ONE (08:47)
[2021-02-22] MEDS ORDERED: EPHEDrine 50 MG/ML VIAL IVP PRN (22:27)
[2021-02-22] MEDS ORDERED: Epidural Premix (fent/bupiv) 110 ML EP SCH (22:30)
[2021-02-23] MEDS ORDERED: Mag Hydrox/Al Hydrox/Simeth 30 ML UDC PO PRN (03:23)
[2021-02-23] MEDS ORDERED: Prenatal Vit/FA 1 EACH TABLET PO SCH (09:37)
[2021-02-23] MEDS ORDERED: Lanolin 7 G OINT...G. TP PRN (09:37)
[2021-02-23] MEDS ORDERED: Benzocaine/Menthol 56 GM AEROSOL SPRAY TP PRN (09:37)
[2021-02-23] MEDS ORDERED: Measles/Mumps/Rubella Vacc 0.5 ML VIAL SQ PRN (09:37)
[2021-02-23] MEDS ORDERED: Rho Immune Globulin 1,500 UNIT SYRINGE IM PRN (09:37)
[2021-02-23] MEDS ORDERED: Ibuprofen 600 MG TABLET PO PRN (09:37)
[2021-02-23] MEDS ORDERED: Oxytocin 20 units/ LR 1000 mL 20 UNIT/1,000 ML BAG IVC SCH (09:37)
[2021-02-23] MEDS ORDERED: Acetaminophen 325 MG TABLET PO PRN (09:37)
[2021-02-23 12:06] VITALS: BP 117/80
== END 2021-02-23 16:45 | disposition home or self-care (01) | DRG 807 ==
LOC: 1NENULAB 05:56 → 1NENUOBS 02-23 10:08
PROVIDERS: ADMIT Obstetrics & Gynecology; ATTEND Obstetrics & Gynecology